=== PATIENT | female | born 1985 | race Hispanic/Latino ===

== ENCOUNTER 2019-01-05 18:31 | Emergency (ER) | payer OTHER ==
[2019-01-05 19:36] LABS: URINE BILIRUBIN - DIPSTICK NEGATIVE (NEGATIVE); URINE BLOOD DIPSTICK TRACE-INTACT (NEGATIVE); URINE COLOR YELLOW; URINE GLUCOSE - DIPSTICK NEGATIVE (NEGATIVE); URINE KETONE NEGATIVE (NEGATIVE); URINE LEUK ESTERASE NEGATIVE (NEGATIVE); URINE NITRITE - DIPSTICK NEGATIVE (Negative); URINE PH 5.5 (4.5-8.0); URINE PROTEIN - DIPSTICK NEGATIVE (NEG-TRACE); URINE SPECIFIC GRAVITY 1.025; URINE UROBILINOGEN - DIPSTICK 0.2 E.U./dL (0.2)
[2019-01-05 19:37] LABS: HEMATOCRIT 42.8 % (37.0-47.0); HEMOGLOBIN 14.3 g/dl (12.0-16.0); IMMATURE GRANULOCYTES 0.5 % (0.0-5.0); MEAN CELL VOLUME 90.3 fL CALC (80.0-100.0); MEAN CORPUSCULAR HGB 30.2 pG CALC (26.0-32.0); MEAN CORPUSCULAR HGB CONC 33.4 g/L CALC (32.0-36.0); NEUT# 4.44 thou/uL (2.00-7.15); RED BLOOD COUNT 4.74 mill/uL (4.20-5.60); RED CELL DISTRI WIDTH 12.9 % (11.5-15.5)
[2019-01-05 19:40] LABS: BARBITURATES NEGATIVE (NEGATIVE); COCAINE NEGATIVE (NEGATIVE); METHADONE NEGATIVE (NEGATIVE); TETRAHYDROCANNABIONOL NEGATIVE (NEGATIVE); TRICYLIC ANTIDEPRESSANTS NEGATIVE (NEGATIVE)
[2019-01-05 19:41] LABS: OXCYCODONE POSITIVE (NEGATIVE)
[2019-01-05 19:48] LABS: ALBUMIN 4.9 g/dL (3.2-5.0); ALKALINE PHOSPHATASE 64 u/l (38-126); ANION GAP 16 (6-22 (CALC)); BILIRUBIN, TOTAL 0.3 mg/dL (0.0-1.4); BUN 9 mg/dL (7-17); BUN/CREATININE RATIO 11 (12-20 (CALC)); CARBON DIOXIDE 25 mmol/l (22-30); CHLORIDE 102 mmol/l (95-108); CREATININE 0.8 mg/dL (0.5-1.0); GFR > 60 ML/MIN (>=60 (CALC)); GFR FOR AFR.AMER. > 60 ML/MIN (>=60 (CALC)); LIPASE 32 u/l (23-300); MAGNESIUM 1.8 mg/dL (1.6-2.3); POTASSIUM 3.2 mmol/l (3.5-5.1); SGOT/AST 30 u/l (14-36); SODIUM 141 mmol/l (137-146); TOTAL PROTEIN 9.7 g/dL (6.3-8.2)
[2019-01-05] MEDS ORDERED: NAPROXEN500 MG PO (22:26)
[2019-01-05] MEDS ORDERED: ONDANSETRON4 MG PO (22:26)
[2019-01-05 22:30] VITALS: BP 103/71
== END 2019-01-05 22:40 | disposition home or self-care (01) ==
LOC: ED 18:31
DX: B34.9 Viral infection, unspecified (principal); N83.202 Unspecified ovarian cyst, left side; N83.201 Unspecified ovarian cyst, right side; E87.6 Hypokalemia; R07.9 Chest pain, unspecified; M54.5 Low back pain
CPT/HCPCS: Q9967

== ENCOUNTER 2022-04-18 15:43 | Emergency (ER) | payer BC, OTHER ==
[2022-04-18] VITALS (10 sets, daily range): BP systolic 117–132; BP diastolic 75–99
[~2022-04-18] VITALS: Ht 154.9 cm; Wt 63.6 kg
[~2022-04-18 15:43] MED LIST: NAPROXEN500 MG PO; ONDANSETRON4 MG PO
[2022-04-18] MEDS ORDERED: ALPRAZOLAM0.25 MG PO (15:57)
[2022-04-18 16:27] LABS: HEMATOCRIT 40.8 % (37.0-47.0); HEMOGLOBIN 13.6 g/dl (12.0-16.0); IMMATURE GRANULOCYTES 0.2 % (0.0-5.0); MEAN CELL VOLUME 94.4 fL CALC (80.0-100.0); MEAN CORPUSCULAR HGB 31.5 pG CALC (26.0-32.0); MEAN CORPUSCULAR HGB CONC 33.3 g/dL CAL (32.0-36.0); NEUT# 3.52 thou/uL (2.00-7.15); RED BLOOD COUNT 4.32 mill/uL (4.20-5.60); RED CELL DISTRI WIDTH 15.1 % (11.5-15.5)
[2022-04-18 16:30] LABS: URINE BILIRUBIN - DIPSTICK NEGATIVE (NEGATIVE); URINE BLOOD DIPSTICK NEGATIVE (NEGATIVE); URINE COLOR YELLOW; URINE GLUCOSE - DIPSTICK NEGATIVE (NEGATIVE); URINE KETONE NEGATIVE (NEGATIVE); URINE LEUK ESTERASE NEGATIVE (NEGATIVE); URINE PROTEIN - DIPSTICK NEGATIVE (NEG-TRACE); URINE SPECIFIC GRAVITY <=1.005; URINE UROBILINOGEN - DIPSTICK 0.2 E.U./dL (0.2)
[2022-04-18 16:35] LABS: URINE NITRITE - DIPSTICK NEGATIVE (Negative)
[2022-04-18 16:54] LABS: ALBUMIN 4.6 g/dL (3.2-5.0); ALKALINE PHOSPHATASE 69 u/l (38-126); ANION GAP 12 (6-22 (CALC)); BILIRUBIN, TOTAL 0.3 mg/dL (0.0-1.4); BUN 8 mg/dL (7-17); BUN/CREATININE RATIO 12 (12-20 (CALC)); CARBON DIOXIDE 26 mmol/l (22-30); CHLORIDE 104 mmol/l (95-108); CREATININE 0.7 mg/dL (0.5-1.0); GFR FOR AFR.AMER. > 60 ML/MIN (>=60 (CALC)); GFR OTHER RACES > 60 ML/MIN (>=60 (CALC)); LIPASE 35 u/l (23-300); POTASSIUM 3.7 mmol/l (3.5-5.1); SGOT/AST 27 u/l (14-36); SODIUM 139 mmol/l (137-146); TOTAL PROTEIN 8.7 g/dL (6.3-8.2)
[2022-04-18] MEDS ORDERED: HYDROCO/APAP1 TA9 PO (19:33)
[2022-04-18] MEDS ORDERED: DICYCLOMINE HYD10 MG PO (19:54)
[2022-04-18] MEDS ORDERED: PROTONIX40 M2 PO (19:54)
[2022-04-18] MEDS ORDERED: ONDANSETRON4 MG PO (19:54)
[2022-04-18] MEDS ORDERED: MIRALAX17 GM/SCOO PO (19:54)
== END 2022-04-18 20:15 | disposition home or self-care (01) | DRG 392 ==
LOC: ED 15:43
PROVIDERS: Nurse Practitioner
DX: R10.13 Epigastric pain (principal); R10.30 Lower abdominal pain, unspecified
CPT/HCPCS: Q9967; S0164

== ENCOUNTER 2022-04-21 03:38 | Emergency (ER) | payer BC, OTHER ==
[~2022-04-21] VITALS: Ht 154.9 cm; Wt 63.6 kg
[~2022-04-21 03:38] MED LIST changes: +ALPRAZOLAM0.25 MG PO; +DICYCLOMINE HYD10 MG PO; +HYDROCO/APAP1 TA9 PO; +MIRALAX17 GM/SCOO PO; +PROTONIX40 M2 PO
[2022-04-21 03:49] VITALS: BP 129/80
[2022-04-21 04:46] LABS: URINE BILIRUBIN - DIPSTICK NEGATIVE (NEGATIVE); URINE COLOR YELLOW; URINE GLUCOSE - DIPSTICK NEGATIVE (NEGATIVE); URINE KETONE NEGATIVE (NEGATIVE); URINE PROTEIN - DIPSTICK NEGATIVE (NEG-TRACE); URINE UROBILINOGEN - DIPSTICK 0.2 E.U./dL (0.2)
[2022-04-21 04:48] LABS: HEMATOCRIT 40.5 % (37.0-47.0); HEMOGLOBIN 13.3 g/dl (12.0-16.0); IMMATURE GRANULOCYTES 0.4 % (0.0-5.0); MEAN CELL VOLUME 96.9 fL CALC (80.0-100.0); MEAN CORPUSCULAR HGB 31.8 pG CALC (26.0-32.0); MEAN CORPUSCULAR HGB CONC 32.8 g/dL CAL (32.0-36.0); NEUT# 4.13 thou/uL (2.00-7.15); RED BLOOD COUNT 4.18 mill/uL (4.20-5.60); RED CELL DISTRI WIDTH 15.4 % (11.5-15.5)
[2022-04-21 04:49] LABS: URINE BLOOD DIPSTICK NEGATIVE (NEGATIVE); URINE LEUK ESTERASE SMALL (NEGATIVE); URINE NITRITE - DIPSTICK NEGATIVE (Negative)
[2022-04-21 04:54] LABS: URINE BACTERIA MANY hpf; URINE EPITHELIAL CELLS MANY EPI/hpf (0-FEW)
[2022-04-21 04:55] LABS: URINE TRICHOMONAS FEW hpf
[2022-04-21 04:59] LABS: ALBUMIN 4.4 g/dL (3.2-5.0); ALKALINE PHOSPHATASE 72 u/l (38-126); AMYLASE 90 u/l (30-110); ANION GAP 12 (6-22 (CALC)); BILIRUBIN, TOTAL 0.2 mg/dL (0.0-1.4); BUN 11 mg/dL (7-17); BUN/CREATININE RATIO 15 (12-20 (CALC)); CARBON DIOXIDE 29 mmol/l (22-30); CHLORIDE 104 mmol/l (95-108); CREATININE 0.7 mg/dL (0.5-1.0); GFR FOR AFR.AMER. > 60 ML/MIN (>=60 (CALC)); GFR OTHER RACES > 60 ML/MIN (>=60 (CALC)); LIPASE 27 u/l (23-300); POTASSIUM 3.6 mmol/l (3.5-5.1); SGOT/AST 29 u/l (14-36); SODIUM 142 mmol/l (137-146); TOTAL PROTEIN 8.4 g/dL (6.3-8.2)
[2022-04-21] MEDS ORDERED: CEPHALEXIN500 MG PO (05:15)
[2022-04-21] MEDS ORDERED: METRONIDAZOLE500 MG PO (05:15)
[2022-04-21] MEDS ORDERED: NAPROXEN500 MG PO (05:27)
[2022-04-21 05:30] VITALS: BP 124/72
== END 2022-04-21 05:55 | disposition home or self-care (01) | DRG 759 ==
LOC: ED 03:38
PROVIDERS: Emergency Medicine
DX: A59.09 Other urogenital trichomoniasis (principal)

== ENCOUNTER 2023-02-16 22:57 | Emergency (ER) | payer SELFPAY ==
[~2023-02-16] VITALS: Ht 154.9 cm; Wt 59.0 kg
[~2023-02-16 22:57] MED LIST changes: +CEPHALEXIN500 MG PO; +METRONIDAZOLE500 MG PO
[2023-02-16 23:05] VITALS: BP 148/85
[2023-02-16 23:42] LABS: BASO% 0.4 % (0-3); EOS% 4.7 % (0-8); HEMOGLOBIN 13.2 g/dl (12.0-16.0); IMMATURE GRANULOCYTES 0.2 % (0.0-5.0); LYMPH% 17.7 % (15-41); MEAN CORPUSCULAR HGB 33.7 pG CALC (26.0-32.0); MONO% 7.5 % (2-13); NEUT# 3.54 thou/uL (2.00-7.15); NEUT% 69.5 % (42-76); RED BLOOD COUNT 3.92 mill/uL (4.20-5.60)
[2023-02-16 23:51] LABS: ALBUMIN 4.4 g/dL (3.2-5.0); ALKALINE PHOSPHATASE 89 u/l (38-126); ANION GAP 14 (6-22 (CALC)); BUN 12 mg/dL (7-17); BUN/CREATININE RATIO 14 (12-20 (CALC)); CARBON DIOXIDE 25 mmol/l (22-30); CHLORIDE 108 mmol/l (95-108); CREATININE 0.8 mg/dL (0.5-1.0); GFR FOR AFR.AMER. > 60 ML/MIN (>=60 (CALC)); GFR OTHER RACES > 60 ML/MIN (>=60 (CALC)); LIPASE 73 u/l (23-300); POTASSIUM 3.8 mmol/l (3.5-5.1); SGOT/AST 27 u/l (14-36); SODIUM 142 mmol/l (137-146); TOTAL PROTEIN 8.3 g/dL (6.3-8.2)
[2023-02-16 23:53] LABS: URINE BILIRUBIN - DIPSTICK Negative (NEGATIVE); URINE BLOOD DIPSTICK Trace-intact (NEGATIVE); URINE GLUCOSE - DIPSTICK Negative (NEGATIVE); URINE KETONE Negative (NEGATIVE); URINE LEUK ESTERASE Negative (NEGATIVE); URINE NITRITE - DIPSTICK Negative (Negative); URINE PROTEIN - DIPSTICK Negative (NEG-TRACE); URINE SPECIFIC GRAVITY 1.025; URINE UROBILINOGEN - DIPSTICK 0.2 E.U./dL (0.2)
[2023-02-16 23:55] LABS: URINE COLOR Yellow
[2023-02-16 23:56] LABS: BILIRUBIN, TOTAL 0.4 mg/dL (0.02-1.3)
[2023-02-17 00:01] VITALS: BP 138/54
[2023-02-17 00:30] VITALS: BP 138/54
[2023-02-17] MEDS ORDERED: TRAMADOL HCL50 MG PO (00:30)
[2023-02-17] MEDS ORDERED: PHENERGAN25 MG RE (00:30)
== END 2023-02-17 00:50 | disposition home or self-care (01) | DRG 866 ==
LOC: ED 22:57
PROVIDERS: Family Medicine
DX: B34.9 Viral infection, unspecified (principal); F41.9 Anxiety disorder, unspecified; F32.A Depression, unspecified; Z20.822 Contact with and (suspected) exposure to COVID-19

== ENCOUNTER 2023-07-16 21:46 | Emergency (ER) | payer SELFPAY ==
[~2023-07-16 21:46] MED LIST changes: +PHENERGAN25 MG RE; +TRAMADOL HCL50 MG PO
[2023-07-17 00:03] VITALS: BP 0/0
[2023-07-17] MEDS ORDERED: TORADOL PO (16:34)
[2023-07-17] MEDS ORDERED: LORTAB 1010 MG PO (16:34)
[2023-07-17] MEDS ORDERED: CITROMA PO (16:42)
== END 2023-07-17 00:03 | disposition left against medical advice (07) | DRG 951 ==
LOC: ED 21:46 → LWOBS 07-17 00:03
DX: Z53.21 Procedure and treatment not carried out due to patient leaving prior to being seen by health care provider (principal)

== ENCOUNTER 2023-07-17 12:50 | Emergency (ER) | payer BC ==
[~2023-07-17] VITALS: Ht 154.9 cm; Wt 63.5 kg
[2023-07-17] MEDS ORDERED: ONDANSETRON HCl 4 MG/2 ML SDV IV ONE ×2 (12:55→13:35)
[2023-07-17] MEDS ORDERED: SODIUM CHLORIDE 0.9% 1,000 ML IV ONE (12:55)
[2023-07-17] MEDS ORDERED: KETOROLAC TROMETHAMINE 30 MG/ML SDV IV ONE (13:05)
[2023-07-17 13:33] LABS: BASO% 0.2 % (0-3); EOS% 4.5 % (0-8); HEMATOCRIT 34.6 % (37.0-47.0); HEMOGLOBIN 11.7 g/dl (12.0-16.0); IMMATURE GRANULOCYTES 0.2 % (0.0-5.0); LYMPH% 40.8 % (15-41); MEAN CELL VOLUME 102.4 fL CALC (80.0-100.0); MEAN CORPUSCULAR HGB 34.6 pG CALC (26.0-32.0); MEAN CORPUSCULAR HGB CONC 33.8 g/dL CAL (32.0-36.0); MONO% 6.4 % (2-13); NEUT# 2.55 thou/uL (2.00-7.15); NEUT% 47.9 % (42-76); RED BLOOD COUNT 3.38 mill/uL (4.20-5.60); RED CELL DISTRI WIDTH 13.8 % (11.5-15.5)
[2023-07-17] MEDS ORDERED: MORPHINE SULFATE 4 MG/ML VIAL IV ONE (13:35)
[2023-07-17 13:37] LABS: URINE BILIRUBIN - DIPSTICK Negative (NEGATIVE); URINE BLOOD DIPSTICK Negative (NEGATIVE); URINE COLOR Yellow; URINE GLUCOSE - DIPSTICK Negative (NEGATIVE); URINE KETONE Negative (NEGATIVE); URINE LEUK ESTERASE Negative (NEGATIVE); URINE NITRITE - DIPSTICK Negative (Negative); URINE PROTEIN - DIPSTICK Negative (NEG-TRACE); URINE UROBILINOGEN - DIPSTICK 0.2 E.U./dL (0.2)
[2023-07-17 13:43] LABS: ALBUMIN 4.3 g/dL (3.2-5.0); ALKALINE PHOSPHATASE 54 u/l (38-126); BILIRUBIN, TOTAL 0.4 mg/dL (0.02-1.3); BUN 8 mg/dL (7-17); BUN/CREATININE RATIO 10 (12-20 (CALC)); CARBON DIOXIDE 25 mmol/l (22-30); CHLORIDE 110 mmol/l (95-108); CREATININE 0.8 mg/dL (0.5-1.0); GFR FOR AFR.AMER. > 60 ML/MIN (>=60 (CALC)); GFR OTHER RACES > 60 ML/MIN (>=60 (CALC)); LIPASE 18 u/l (23-300); SGOT/AST 46 u/l (14-36); SODIUM 141 mmol/l (137-146); TOTAL PROTEIN 8.1 g/dL (6.3-8.2)
[2023-07-17 13:44] LABS: ANION GAP 9 (6-22 (CALC))
[2023-07-17] MEDS ORDERED: HYDROmorphone HCL 2 MG/AMP IV ONE (13:55)
[2023-07-17] MEDS ORDERED: POTASSIUM CHLORIDE 20 MEQ/TAB PO ONE (14:25)
[2023-07-17] MEDS ORDERED: TORADOL PO (16:34)
[2023-07-17] MEDS ORDERED: LORTAB 1010 MG PO (16:34)
[2023-07-17] MEDS ORDERED: DICYCLOMINE HCL 20 MG/2 ML VIAL IM ONE (16:40)
[2023-07-17] MEDS ORDERED: CITROMA PO (16:42)
[2023-07-17 17:23] VITALS: BP 128/96
== END 2023-07-17 17:30 | disposition home or self-care (01) | DRG 392 ==
LOC: ED 12:50
PROVIDERS: Family Medicine
DX: K59.00 Constipation, unspecified (principal); N20.0 Calculus of kidney; F41.9 Anxiety disorder, unspecified; F32.A Depression, unspecified; Z20.822 Contact with and (suspected) exposure to COVID-19